=== PATIENT | male | born 1995 | race Caucasian/White ===

== ENCOUNTER 2019-06-02 05:40 | Observation (INO) | payer OTHER, SELFPAY ==
[2019-06-02 06:37] LABS: ALT (SGPT) 29 U/L (8-55); AST (SGOT) 32 U/L (5-34); Albumin 4.5 g/dL (3.5-5.0); Alkaline Phosphatase 65 U/L (40-110); Anion Gap 17 mmol/L (10-20); BUN (Urea Nitrogen) 10 mg/dL (8.9-20.6); Bilirubin, Total 0.6 mg/dL (0.2-1.2); CK (CPK) 468 U/L (30-200); Calc. Creatinine Clearance 0 mL/min (70-130); Calcium 8.4 mg/dL (7.8-10.44); Carbon Dioxide 14 mmol/L (22-29); Chloride 114 mmol/L (98-107); Estimated GFR-MDRD 88; Globulin 2.1 g/dL (2.4-3.5); Glucose 128 mg/dL (70-105); Potassium 3.8 mmol/L (3.5-5.1); Protein, Total 6.6 g/dL (6.0-8.3); Sodium 141 mmol/L (136-145)
[2019-06-02 06:41] LABS: #Lymphocytes 0.4 thou/uL (1.20-3.40); #Monocytes 0.5 thou/uL (0.11-0.59); #Neutrophils 13.8 thou/uL (1.40-6.50); %Basophils 0.1 % (0.0-1.0); %Eosinophils 0.1 % (0.0-10.0); %Lymphocytes 2.8 % (21.0-51.0); %Monocytes 3.3 % (0.0-10.0); %Neutrophils 93.8 % (42.0-75.0); Hemoglobin 14.2 g/dL (14.0-18.0); Mean Corpuscular HGB CONC 34.1 g/dL (32.0-36.0); Mean Corpuscular Hemoglobin 29.9 pg (27.0-31.0); Mean Corpuscular Volume 87.8 fL (78.0-98.0); Platelet Count 132 thou/uL (130-400); RBC Distribution Width 11.7 % (11.5-14.5); Red Blood Cell (RBC) Count 4.76 mill/uL (4.70-6.10); White Blood Cell (WBC) Count 14.7 thou/uL (4.8-10.8)
[2019-06-02] MEDS ORDERED: Lorazepam 2 MG/ML VIAL SLOW IVP PRN (06:41)
[2019-06-02 07:28] LABS: Troponin I 0.032 ng/mL (< 0.028)
--- NOTE | 2019-06-02 09:40 | HP ---
HISTORY OF PRESENT ILLNESS: Mr. Mccrary is a 23-year-old male. Last night he attended the festival and he had a couple of drinks and later ingested some drug, which was later designated as LSD. He came to the ER because of severe confusion and agitation. He was sedated with benzodiazepine, and he has been admitted for management. At the time of evaluation, he is able to give us some history. PAST MEDICAL HISTORY: He does not have any significant past medical history. PAST SURGICAL HISTORY: No surgical history. SOCIAL HISTORY: He drinks and smokes occasionally and he claims that this is the 1st time he ingested drugs. ALLERGIES: HE HAS ALLERGY TO SULFA. FAMILY HISTORY: Reviewed and is not contributory. MEDICATIONS: At home, he was not on any medications. REVIEW OF SYSTEMS: Remarkable for agitation; at the current time, he denies. CONSTITUTIONAL: He denies any weakness. Denies any fever. HEENT: No headache. No ocular pain. No sore throat. No rhinorrhea. No earache. No epistaxis. NECK: No neck pain. No neck stiffness. CARDIOVASCULAR: No shortness of breath. No chest pain. PULMONARY: No coughing. GASTROINTESTINAL: No nausea. No vomiting. No diarrhea. No abdominal pain. GENITOURINARY: No dysuria. No hematuria. ENDOCRINOLOGIC: No heat or cold intolerance. No polyuria, polydipsia, or polyphagia. MUSCULOSKELETAL: No arthritis. No muscle pain. HEMATOLOGIC: No abnormal bleeding. No ecchymosis. LYMPHATIC: No palpable lymphadenopathy. No painful lymphadenopathy. SKIN: No rash. No itching. ALLERGIC: No hay fever. NEUROLOGIC: No seizure. When he came in, he was agitated and confused. At the current time, he is calm and oriented. PSYCHIATRIC: As mentioned earlier, when he came, he was agitated and confused. Currently, he is calm and oriented. PHYSICAL EXAMINATION: GENERAL: At the current time, he is alert and oriented, in no distress. VITAL SIGNS: His latest vital signs show a temperature of 98.7, pulse rate 109, respiratory rate 20, blood pressure 142/89. HEENT: His head is normocephalic and atraumatic. Both his pupils are equal and reactive. Ears and nose normal. Oral mucosa is moist. Pharyngeal area is clear. NECK: Supple. There is no distention of the jugular vein. No lymphadenopathy felt. Thyroid gland not palpable. There is no carotid bruit. CHEST: Symmetric with regular S1 and S2. LUNGS: Clear. ABDOMEN: Soft. Bowel sounds heard. We could not appreciate any organomegaly. EXTREMITIES: Limbs show no edema. NEUROLOGIC: He moves all extremities. LABORATORY DATA: His CBC shows a WBC of 18.4, hemoglobin of 15.3, hematocrit of 46.2, MCV of 87, and platelets of 174. Chemistry and lytes show sodium of 143, potassium 4.4, chloride 110, CO2 of 21, BUN 11, creatinine 1.25, and glucose 87. His CPK was noticed to be 268. His troponin was noticed to be 0.03. Head CT is negative. Chest x-ray was reported to show no acute cardiopulmonary finding. ASSESSMENT: This is a 23-year-old man with no significant past medical history, who was admitted with severe agitation and confusion secondary to drug use, namely LSD. His CPK was noticed to be mildly elevated. His troponin was noticed to be also elevated. PLAN: We will recheck troponin level. We will hydrate him. He will be admitted to telemetry for observation and he will be on benzodiazepine p.r.n. for agitation. Job ID: [id number]
[2019-06-02 10:53] LABS: Troponin I 0.072 ng/mL (< 0.028)
[2019-06-02 12:07] VITALS: BMI 25.8
[2019-06-02] MEDS: Sodium Chloride 0.9% 1,000 ML IV SCH ×3 (14:21→22:24)
[2019-06-02] MEDS: Enoxaparin Sodium 40 MG/0.4 ML SYRINGE SC SCH (14:21)
[2019-06-03] MEDS: Sodium Chloride 0.9% 1,000 ML IV SCH (04:38)
[2019-06-03 05:27] LABS: Anion Gap 13 mmol/L (10-20); BUN (Urea Nitrogen) 6 mg/dL (8.9-20.6); Calc. Creatinine Clearance 165 mL/min (70-130); Carbon Dioxide 20 mmol/L (22-29); Chloride 111 mmol/L (98-107); Estimated GFR-MDRD Greater than 90; Glucose 85 mg/dL (70-105); Potassium 4.1 mmol/L (3.5-5.1); Sodium 140 mmol/L (136-145)
[2019-06-03 08:18] VITALS: BP 143/85; TEMP 98.2
[2019-06-03 09:03] LABS: Troponin I 0.022 ng/mL (< 0.028)
[2019-06-03] MEDS: Enoxaparin Sodium 40 MG/0.4 ML SYRINGE SC SCH (09:41)
--- NOTE | 2019-06-03 14:17 | NM ---
NUCLEAR MEDICINE CARDIAC MYOCARDIAL PERFUSION SPECT EJECTION FRACTION STUDY WALL MOTION CINE: DATE: 06/03/2019 HISTORY: 23-year-old male with elevated troponin TECHNIQUE: Number of days: 1 Rest study: Technetium 99m-sestamibi (Cardiolite) dose: 9.8 mCi Exercise stress: Treadmill Stress study: Technetium 99m-sestamibi (Cardiolite) dose: 30.7 mCi FINDINGS: CARDIAC (MYOCARDIAL PERFUSION) SPECT There are no reversible myocardial perfusion defects. EJECTION FRACTION STUDY Left ventricular EF = 74 % WALL MOTION CINE Normal IMPRESSION: No evidence of reversible ischemia.
--- NOTE | 2019-06-03 19:38 | DIS ---
DATE OF ADMISSION: 06/02/2019 DATE OF DISCHARGE: 06/03/2019 PRIMARY CARE PROVIDER: Unknown. DISCHARGE DIAGNOSES: 1. Acute metabolic encephalopathy. 2. Acute metabolic encephalopathy was secondary to recreational drug use, most likely LSD. 3. Rhabdomyolysis. 4. Elevated troponin I. CONDITION OF PATIENT ON THE DAY OF DISCHARGE: Stable. I assessed Mr. Mccrary on the day of discharge. He denies any chest pain or shortness of breath. Vital signs are stable. S1 and S2 are heard, regular. Lungs are clear to auscultation bilaterally. POST-ACUTE CARE FOLLOWUP: The patient is advised to follow up with his primary care provider in 3 to 5 days. HOSPITAL COURSE: Mr. Mccrary is a pleasant 23-year-old gentleman, who was admitted to [facility] for acute metabolic encephalopathy in the context of probable LSD use. He was also found to have mild rhabdomyolysis. Renal function was normal. He received intravenous fluids. His troponins were mildly elevated, indeterminate range. He had nuclear stress test, which was normal, with left ventricular ejection fraction of 74%. He is being discharged home in a stable condition. He has been advised to discontinue tobacco use and recreational drug use. On the day of discharge, he has sodium 140, potassium 4.1, creatinine 0.77. Many thanks for allowing me to participate in your patient's care. Please feel free to contact me with any questions or concerns. DISCHARGE DESTINATION: Home. Job ID: [id number]
== END 2019-06-03 15:40 | disposition home or self-care (01) ==
LOC: ERS 05:40 → 2NO 06:00
PROVIDERS: ADMIT Internal Medicine; ATTEND Internal Medicine
DX: G92 Toxic encephalopathy (principal); M62.82 Rhabdomyolysis; F17.200 Nicotine dependence, unspecified, uncomplicated; Z88.2 Allergy status to sulfonamides
CPT/HCPCS: 36415; 36416; 78452; 80048; 80053; 82550; 84484; 85025; 93005; 93017; 96360; 96361; 96372; A9500; G0378; J1650